=== PATIENT | female | born 1970 | race Hispanic/Latino ===

== ENCOUNTER → 2025-03-27 | Outpatient (CLI) | payer OTHER ==
--- NOTE | 2025-03-28 05:53 | HMCIMG ---
EXAM: CT Left Knee without IV contrast CLINICAL HISTORY: Unspecified fracture of the left femur. TECHNIQUE: Thin collimated axial CT images of the left knee were obtained with sagittal and coronal reformatted images also submitted. CT scan done according to ALARA (As Low As Reasonably Achievable). CONTRAST: No. COMPARISON: None. FINDINGS: Minimally displaced intra-articular fracture involving the lateral trochlear facet. Mild to moderate periarticular osteopenia. No aggressive osseous lesion. The visualized muscles and tendons appear grossly unremarkable. Moderate joint effusion. No soft tissue mass or collection. IMPRESSIONS: Minimally displaced intra-articular fracture involving the lateral trochlear facet. Moderate joint effusion. Mild to moderate periarticular osteopenia. /[place]
== END | disposition home or self-care (01) ==
LOC: RAH 10:35
PROVIDERS: ATTEND Family Medicine
DX: S72.92XA Unspecified fracture of left femur, initial encounter for closed fracture (principal); M85.862 Other specified disorders of bone density and structure, left lower leg; M25.462 Effusion, left knee; X58.XXXA Exposure to other specified factors, initial encounter; Y93.89 Activity, other specified; Y92.89 Other specified places as the place of occurrence of the external cause; Y99.8 Other external cause status
CPT/HCPCS: 73700